=== PATIENT | male | born 1995 | race Caucasian/White ===

== ENCOUNTER 2018-03-05 13:43 | Emergency (ER) | payer OTHER ==
[~2018-03-05] VITALS: Ht 180.3 cm; Wt 70.3 kg
[2018-03-05 13:47] VITALS: Ht 180.3 cm; Wt 70.3 kg
[2018-03-05 16:59] VITALS: BP 149/72
== END 2018-03-05 16:59 | disposition home or self-care (01) ==
LOC: ED 13:43
DX: S43.005A Unspecified dislocation of left shoulder joint, initial encounter (principal); Z88.0 Allergy status to penicillin; Y04.8XXA Assault by other bodily force, initial encounter; Y93.89 Activity, other specified; Y92.89 Other specified places as the place of occurrence of the external cause; Y99.8 Other external cause status
CPT/HCPCS: J3490; Q0092